=== PATIENT | female | born 1950 | race Caucasian/White ===

== ENCOUNTER 2016-08-28 23:58 | Emergency (ER) | payer MEDICAID, MEDICARE ==
[~2016-08-28] VITALS: Ht 165.1 cm; Wt 80.0 kg
[~2016-08-28 23:58] MED LIST: ARIP20TA8 PO; BENZ1TAB61 PO; CEPH-368 PO; CLON1TAB23 PO; DULO30CA2 PO; FLUR30CA3 PO; GLIM4TAB2 PO; GUAI200T3 PO; GUAN2TAB PO; HYDR-3240 PO; HYDR2TAB13 PO; SIMV20TA3 PO; SITA100T PO; TRAZ100T15 PO; TRAZ150T68 PO
[2016-08-29 00:49] VITALS: BP 168/77
[2016-08-29 01:02] LABS: HEMOGLOBIN 10.5 g/dL (11.7-16.4)
[2016-08-29 01:11] LABS: ASPARTATE AMINO TRANSFERASE 27 U/L (15-37); BLOOD UREA NITROGEN 17 mg/dL (7-18)
[2016-08-29 01:18] LABS: ACETAMINOPHEN < 2 mcg/mL (10-30)
[2016-08-29] MEDS ORDERED: HYDROcodone/APAP 5/325 TABLET ONE ×2 (02:13→04:17)
[2016-08-29] MEDS ORDERED: HYDROcodone/APAP 5/325 TABLET PO ONE ×2 (03:00→04:30)
[2016-08-29 03:14] LABS: DAU SCREEN DISCLAIMER
[2016-08-29 03:20] LABS: PATH.CAST-FLAG NOT PRESENT; SPERM-FLAG NOT PRESENT; SRC-FLAG NOT PRESENT; XTAL-FLAG NOT PRESENT; YLC-FLAG NOT PRESENT
== END 2016-08-29 05:40 | disposition home or self-care (01) ==
LOC: ED 08-29 05:22
DX: F32.9 Major depressive disorder, single episode, unspecified (principal); N30.90 Cystitis, unspecified without hematuria; K59.00 Constipation, unspecified; M79.622 Pain in left upper arm
CPT/HCPCS: 36415; 74022; 80053; 80307; 80329; 81001; 85025; 87086; G0480

== ENCOUNTER 2016-11-16 12:25 | Inpatient (IN) | payer MEDICARE, MEDICAID ==
[~2016-11-16] VITALS: Ht 152.4 cm; Wt 84.4 kg
[~2016-11-16 12:25] MED LIST changes: +DOXE10CA PO; +FERR325T20 PO; +FLUCONAZOLE 400 MG/200 ML ONE; +GABA100C8 PO; +HYDROCORTISONE CRM 1%, 30GM ONE; +METF500T4 PO; +NAPR500T3 PO; +NYST1000 PO; +NYSTATIN OINT 15GM ONE; +OMEP40CA6 PO; +OXYC5TAB3 PO; +SENN8.6T4 PO; +TIOT18CA INH; +TRAM50TA2 PO
[2016-11-16] MEDS ORDERED: CEFTRIAXONE PMX 1GM/50ML 50 ML ONE (14:44)
[2016-11-16] MEDS: DULOXETINE 30 MG CAPSULE.DR PO SCH (17:00)
[2016-11-16] MEDS: DOXEPIN 10 MG CAPSULE PO SCH (17:00)
[2016-11-16] MEDS: SENNOSIDES 8.6 MG TABLET PO SCH (17:00)
[2016-11-16] MEDS: OMEPRAZOLE 20 MG CAPSULE.DR PO SCH (17:00)
[2016-11-16] MEDS: ARIPIPRAZOLE 2 MG TABLET PO SCH (17:00)
[2016-11-16] MEDS: GABAPENTIN 300 MG CAPSULE PO SCH (21:00)
[2016-11-16] MEDS: HYDROCORTISONE OINT 2.5%, 20GM TP SCH (21:00)
[2016-11-16] MEDS: ENOXAPARIN 40 MG/0.4 ML SQ SCH (21:00)
[2016-11-16] MEDS: SIMVASTATIN 20 MG TABLET PO SCH (21:00)
[2016-11-16] MEDS: TRAZODONE 150MG TABLET PO SCH (21:00)
[2016-11-16] MEDS: FLUCONAZOLE 400 MG/200 ML 200 ML IV SCH (21:00)
[2016-11-17] MEDS: SODIUM CHLORIDE 0.9% 1,000 ML IV SCH (05:00)
[2016-11-17] MEDS: GABAPENTIN 300 MG CAPSULE PO SCH ×3 (09:45→20:36)
[2016-11-17] MEDS: DULOXETINE 30 MG CAPSULE.DR PO SCH (09:45)
[2016-11-17] MEDS: ARIPIPRAZOLE 2 MG TABLET PO SCH (09:45)
[2016-11-17] MEDS: HYDROCORTISONE OINT 2.5%, 20GM TP SCH ×3 (09:45→20:34)
[2016-11-17] MEDS: SENNOSIDES 8.6 MG TABLET PO SCH (09:45)
[2016-11-17] MEDS: OMEPRAZOLE 20 MG CAPSULE.DR PO SCH (09:45)
[2016-11-17] MEDS: DOXEPIN 10 MG CAPSULE PO SCH (09:45)
[2016-11-17 14:41] VITALS: BP 158/81
[2016-11-17] MEDS: IPRATROPIUM 0.5 MG/2.5 ML INHA HHN SCH ×2 (17:30→23:30)
[2016-11-17] MEDS ORDERED: CEFTRIAXONE 2 GM in SODIUM CHLORIDE 0.9% 50 ML IVPB SCH (18:30)
[2016-11-17 19:32] VITALS: BP 169/80
[2016-11-17] MEDS: FLUCONAZOLE 400 MG/200 ML 200 ML IV SCH (20:30)
[2016-11-17] MEDS: ENOXAPARIN 40 MG/0.4 ML SQ SCH (20:34)
[2016-11-17] MEDS: TRAZODONE 150MG TABLET PO SCH (20:36)
[2016-11-17] MEDS: SIMVASTATIN 20 MG TABLET PO SCH (20:36)
[2016-11-18 01:51] VITALS: BP 163/82
[2016-11-18] MEDS: SODIUM CHLORIDE 0.9% 1,000 ML IV SCH ×2 (04:07→15:15)
[2016-11-18] MEDS: IPRATROPIUM 0.5 MG/2.5 ML INHA HHN SCH ×4 (05:30→23:30)
[2016-11-18 06:37] VITALS: BP 152/74
[2016-11-18 07:17] LABS: BLOOD UREA NITROGEN 7 mg/dL (7-18)
[2016-11-18] MEDS: OMEPRAZOLE 20 MG CAPSULE.DR PO SCH (07:17)
[2016-11-18] MEDS: ARIPIPRAZOLE 2 MG TABLET PO SCH (09:00)
[2016-11-18] MEDS: GABAPENTIN 300 MG CAPSULE PO SCH ×3 (09:36→20:55)
[2016-11-18] MEDS: DULOXETINE 30 MG CAPSULE.DR PO SCH (09:36)
[2016-11-18] MEDS: SENNOSIDES 8.6 MG TABLET PO SCH (09:36)
[2016-11-18] MEDS: DOXEPIN 10 MG CAPSULE PO SCH (09:37)
[2016-11-18] MEDS: HYDROCORTISONE OINT 2.5%, 20GM TP SCH ×3 (09:37→20:56)
[2016-11-18 12:50] LABS: ANISOCYTOSIS 1+
[2016-11-18] MEDS: NYSTATIN TOPICAL POWDER 15GM TP SCH ×3 (13:55→20:55)
[2016-11-18 14:00] VITALS: BP 133/78
[2016-11-18 14:28] LABS: ASPARTATE AMINO TRANSFERASE 15 U/L (15-37); BLOOD UREA NITROGEN 13 mg/dL (7-18)
[2016-11-18] MEDS ORDERED: CEFTRIAXONE PMX 2GM/50ML 50 ML IVPB SCH (15:21)
[2016-11-18] MEDS: CEFTRIAXONE PMX 2GM/50ML 50 ML IVPB SCH (16:31)
[2016-11-18 19:25] VITALS: BP 161/80
[2016-11-18] MEDS: SIMVASTATIN 20 MG TABLET PO SCH (20:55)
[2016-11-18] MEDS: TRAZODONE 150MG TABLET PO SCH (20:55)
[2016-11-18] MEDS: FLUCONAZOLE 400 MG/200 ML 200 ML IV SCH (20:56)
[2016-11-18] MEDS: ENOXAPARIN 40 MG/0.4 ML SQ SCH (20:57)
[2016-11-19 01:39] VITALS: BP 133/72
[2016-11-19] MEDS: SODIUM CHLORIDE 0.9% 1,000 ML IV SCH ×2 (04:34→14:30)
[2016-11-19] MEDS: NYSTATIN TOPICAL POWDER 15GM TP SCH ×4 (05:24→20:55)
[2016-11-19] MEDS: IPRATROPIUM 0.5 MG/2.5 ML INHA HHN SCH (05:30)
[2016-11-19 06:15] LABS: BLOOD UREA NITROGEN 5 mg/dL (7-18)
[2016-11-19 06:41] VITALS: BP 171/78
[2016-11-19 06:45] LABS: PATH.CAST-FLAG NOT PRESENT; SPERM-FLAG NOT PRESENT; SRC-FLAG NOT PRESENT; XTAL-FLAG NOT PRESENT; YLC-FLAG NOT PRESENT
[2016-11-19] MEDS ORDERED: POLYETHYLENE GLYCOL 17 GM PACKET NG ONE (07:30)
[2016-11-19] MEDS: DOXEPIN 10 MG CAPSULE PO SCH (07:55)
[2016-11-19] MEDS: DULOXETINE 30 MG CAPSULE.DR PO SCH (07:55)
[2016-11-19] MEDS: ARIPIPRAZOLE 2 MG TABLET PO SCH (07:55)
[2016-11-19] MEDS: GABAPENTIN 300 MG CAPSULE PO SCH ×3 (07:55→20:54)
[2016-11-19] MEDS: HYDROCORTISONE OINT 2.5%, 20GM TP SCH ×3 (07:55→20:55)
[2016-11-19] MEDS: SENNOSIDES 8.6 MG TABLET PO SCH (07:55)
[2016-11-19] MEDS: OMEPRAZOLE 20 MG CAPSULE.DR PO SCH (07:55)
[2016-11-19 13:26] VITALS: BP 183/91
[2016-11-19 13:44] VITALS: BP 164/80
[2016-11-19 14:32] LABS: ASPARTATE AMINO TRANSFERASE 16 U/L (15-37); BLOOD UREA NITROGEN 17 mg/dL (7-18)
[2016-11-19] MEDS: CEFTRIAXONE PMX 2GM/50ML 50 ML IVPB SCH (16:08)
[2016-11-19 18:51] VITALS: BP 176/78
[2016-11-19] MEDS: TRAZODONE 150MG TABLET PO SCH (20:54)
[2016-11-19] MEDS: SIMVASTATIN 20 MG TABLET PO SCH (20:54)
[2016-11-19] MEDS: ENOXAPARIN 40 MG/0.4 ML SQ SCH (20:55)
[2016-11-19] MEDS: FLUCONAZOLE 400 MG/200 ML 200 ML IV SCH (20:55)
[2016-11-19 21:00] VITALS: BP 146/75
[2016-11-20 02:59] VITALS: BP 168/79
[2016-11-20] MEDS: NYSTATIN TOPICAL POWDER 15GM TP SCH ×2 (05:14→12:39)
[2016-11-20 06:40] VITALS: BP 168/81
[2016-11-20] MEDS: SENNOSIDES 8.6 MG TABLET PO SCH (08:00)
[2016-11-20] MEDS: DULOXETINE 30 MG CAPSULE.DR PO SCH (08:00)
[2016-11-20] MEDS: GABAPENTIN 300 MG CAPSULE PO SCH (08:00)
[2016-11-20] MEDS: OMEPRAZOLE 20 MG CAPSULE.DR PO SCH (08:00)
[2016-11-20] MEDS: HYDROCORTISONE OINT 2.5%, 20GM TP SCH (08:00)
[2016-11-20] MEDS: DOXEPIN 10 MG CAPSULE PO SCH (08:00)
[2016-11-20] MEDS: ARIPIPRAZOLE 2 MG TABLET PO SCH (08:00)
[2016-11-20] MEDS ORDERED: NYST60PO TP (09:33)
[2016-11-20] MEDS ORDERED: FLUC200T PO (09:33)
[2016-11-20 10:33] LABS: ANISOCYTOSIS 2+; HYPOCHROMIA 1+; MICROCYTOSIS 2+
[2016-11-20 13:08] VITALS: BP 169/76
== END 2016-11-20 16:19 | DRG 690 ==
LOC: ED 12:25 → EDIP 15:42 → 3NE 11-17 14:22
PROVIDERS: ADMIT Internal Medicine; ATTEND Internal Medicine
DX: N39.0 Urinary tract infection, site not specified (principal); E11.40 Type 2 diabetes mellitus with diabetic neuropathy, unspecified; B37.2 Candidiasis of skin and nail; D50.9 Iron deficiency anemia, unspecified; E78.5 Hyperlipidemia, unspecified; Z66 Do not resuscitate; G47.00 Insomnia, unspecified; F32.9 Major depressive disorder, single episode, unspecified; F41.9 Anxiety disorder, unspecified; R47.81 Slurred speech; G89.29 Other chronic pain; J44.9 Chronic obstructive pulmonary disease, unspecified; K21.9 Gastro-esophageal reflux disease without esophagitis; R32 Unspecified urinary incontinence; Z99.81 Dependence on supplemental oxygen; Z86.73 Personal history of transient ischemic attack (TIA), and cerebral infarction without residual deficits; B37.9 Candidiasis, unspecified
CPT/HCPCS: 36415; 71010; 76700; 80048; 80053; 81001; 83036; 84145; 85025; 85651; 86141; 87040; 87086; 93005; 99285; J0696; J1450; J1650; J7030